=== PATIENT | female | born 1945 | race Caucasian/White ===

== ENCOUNTER 2017-08-31 17:34 | Emergency (ER) | payer OTHER ==
[2017-08-31 17:39] VITALS: BMI 22.5
[2017-08-31 17:42] VITALS: PULSE 73; TEMP 98
--- NOTE | 2017-08-31 17:50 | PDOC ---
Attending Attestation - Resident Resident Name: Jennifer Ohara - ED Attending Attestation I have performed the following: I have examined & evaluated the patient, The case was reviewed & discussed with the resident, I agree w/resident's findings & plan, Exceptions are as noted - HPI HPI: 08/31/17 17:49 72 year old female pmh HTN, HLD p/w sudden onset of left lower jaw pain starting around 2:30 pm. Pt states that the pain started around her left lower jaw worse with clenching. Denies trauma, injury. No recent dental procedure, though did have teeth xrays that were negative about a 1 month ago. Has dental caps. Denies chest pain or shortness of breath. Palpation of teeth worsens pain. No fevers, chills. Pt reports taking oral gel and NSAIDS which improved the pain significantly. - Physicial Exam PE: 08/31/17 18:04 GENERAL: Awake, alert, and fully oriented, in no acute distress HEAD: No signs of trauma EYES: EOMI, sclera anicteric, conjunctiva clear ENT: Auricles normal inspection, hearing grossly normal, nares patent, oropharynx clear without exudates. No TMJ tenderness. No fluctuance or induration or erythema. Palpation of skin overlying left jaw elicits no pain. Patient quite tender to palpation over left lower teeth. No evidence of gingival infection. TMs clear bilaterally. NECK: Normal ROM, supple LUNGS: Breath sounds equal, clear to auscultation bilaterally. No wheezes, and no crackles HEART: Regular rate and rhythm, normal S1 and S2, no murmurs, rubs or gallops EXTREMITIES: Normal range of motion, no edema. No clubbing or cyanosis. No cords, erythema, or tenderness NEUROLOGICAL: Cranial nerves II through XII intact. Normal speech, normal gait SKIN: Warm, Dry, normal turgor, no rashes or lesions noted. - Medical Decision Making 08/31/17 18:05 Vital Signs Temp Pulse Resp BP Pulse Ox 98.0 F 73 18 163/111 100 08/31/17 17:34 08/31/17 17:34 08/31/17 17:34 08/31/17 17:34 08/31/17 17:34 Pt with dental pain. Pt has very reproducible tooth pain (with no evidence of infection) Never had chest pain (very low suspicion for ACS). NSAIDs, supportive care. Pt's son will obtain an appointment with a dentist.
--- NOTE | 2017-08-31 18:05 | PDOC ---
History of Present Illness - General Chief Complaint: Pain, Acute Stated Complaint: LEFT JAW PAIN Time Seen by Provider: 08/31/17 17:42 - History of Present Illness Initial Comments: 08/31/17 18:05 72 year old with a history of HTN and HLD who presents with sudden onset L sided jaw pain radiating from the L eye to the L jawline. Initially rated 11/10 now 6/10 after aleve and oragel. She denies headache, nausea, vomiting, fever, chest pain, changes in vision or hearing. She has no other complaints at bedside. PMHX: as in HPI PSHX: none Meds: clonidine, simvastatin, ASA, telsartan Allergies: peniciilin, sulfa Tob: none Etoh: occasional Rec drugs: none Past History - Past Medical History Allergies/Adverse Reactions: Allergies Allergy/AdvReac Type Severity Reaction Status Date / Time Penicillins Allergy Verified 08/31/17 17:35 Sulfa (Sulfonamide Allergy Verified 08/31/17 17:35 Antibiotics) RUM Allergy Uncoded 08/31/17 17:35 Home Medications: Ambulatory Orders Aspirin [ASA -] 81 mg PO DAILY 08/31/17 Clonidine HCl 0.1 mg PO BID 08/31/17 Simvastatin 0 mg PO HS 08/31/17 Telmisartan/Hydrochlorothiazid [Telmisartan-Hctz 80-25 mg Tab] 1 each PO DAILY 08/31/17 COPD: No DVT: No HTN: Yes Hypercholesterolemia: Yes - Surgical History Abdominal Surgery: Yes (HERNIA) - Suicide/Smoking/Psychosocial Hx Smoking History: Never smoked Hx Alcohol Use: Yes Drug/Substance Use Hx: No Substance Use Type: Alcohol Review of Systems - Review of Systems Able to Perform ROS?: Yes Is the patient limited Croatian proficient: No Constitutional: No: Chills, Fever HEENTM: No: Blurred Vision, Tinnitus Respiratory: No: Cough, Shortness of Breath Cardiac (ROS): No: Chest Pain ABD/GI: No: Constipated, Diarrhea, Nausea, Vomiting Musculoskeletal: No: Muscle Pain, Muscle Weakness Neurological: No: Headache *Physical Exam - Vital Signs Last Vital Signs Temp Pulse Resp BP Pulse Ox 98.0 F 73 18 163/111 100 08/31/17 17:34 08/31/17 17:34 08/31/17 17:34 08/31/17 17:34 08/31/17 17:34 - Physical Exam Comments: 08/31/17 18:11 GENERAL: Awake, alert, and fully oriented, in no acute distress HEAD: No signs of trauma, normocephalic, atraumatic EYES: PERRLA, EOMI, sclera anicteric, conjunctiva clear ENT: Auricles normal inspection, hearing grossly normal, nares patent, oropharynx clear without exudates. Moist mucosa, + tenderness to dental palpation NECK: Normal ROM, supple, no lymphadenopathy or masses LUNGS: No distress, speaks full sentences, clear to auscultation bilaterally HEART: Regular rate and rhythm, normal S1 and S2, + holosystolic murmur, rubs or gallops, peripheral pulses normal and equal bilaterally. ABDOMEN: Soft, nontender, normoactive bowel sounds. No guarding, no rebound. No masses EXTREMITIES : Normal inspection, Normal range of motion, no edema. No clubbing or cyanosis. NEUROLOGICAL: Cranial nerves II through XII grossly intact. Normal speech, normal gait, no focal sensorimotor deficits SKIN: Warm, Dry, normal turgor, no rashes or lesions noted 08/31/17 18:13 Medical Decision Making - Medical Decision Making 08/31/17 18:12 72 year old with a history of HTN and HLD who presents with sudden onset L sided jaw pain radiating from the L eye to the L jawline. Patient's symptoms and physical exam are most consistent with dental pain. Also consider trigeminal neuralgia vs ACS vs CVA, however considering pain improved with oragel and the patient point tenderness to dental palpation this is most consistent with dental pain. The patient is stable for discharge and advised to f/u with dental within 1-2 days and given strict return precautions. *DC/Admit/Observation/Transfer Diagnosis at time of Disposition: Pain, dental - Discharge Dispostion Disposition: HOME Condition at time of disposition: Stable Decision to Admit order: No - Referrals Referrals: Feliberto Solitario [Primary Care Provider] - - Patient Instructions Printed Discharge Instructions: DI for Dental Pain Additional Instructions: Advised to see dentist as soon as possible. Continue to take oragel as needed and over the counter aleve or pain medications. Return to the ED is pain worsens , fever develops or headache, nausea or vomiting. - Post Discharge Activity
[2017-08-31 18:21] VITALS: BP 152/90
== END 2017-08-31 18:10 | disposition home or self-care (01) ==
LOC: FER 17:34
DX: K08.89 Other specified disorders of teeth and supporting structures (principal); I10 Essential (primary) hypertension; E78.5 Hyperlipidemia, unspecified; Z88.0 Allergy status to penicillin; Z88.2 Allergy status to sulfonamides; Z79.82 Long term (current) use of aspirin
CPT/HCPCS: 99281-25

== ENCOUNTER 2019-01-03 12:48 | Emergency (ER) | payer OTHER, BC ==
[2019-01-03 13:08] VITALS: BMI 23.2
--- NOTE | 2019-01-03 14:20 | PDOC ---
Attending Attestation - Resident Resident Name: Frederick Lee - ED Attending Attestation I have performed the following: I have examined & evaluated the patient, The case was reviewed & discussed with the resident, I agree w/resident's findings & plan, Exceptions are as noted - HPI HPI: 01/03/19 14:34 MS. Ramirez is a 73-year-old female presenting to emergency department with swelling beneath her left mandibular area. Patient has a history of hypertension, hyperlipidemia. Approxi-1 week ago she began to have pain in her left ear, went to an urgent care and was told she was fine She returned to the urgent care where rapid strep was performed and patient was told she has strep throat. She has been on azithromycin for the past 3 days. However over this time, she has noticed progressive worsening of swelling beneath her left jaw. Patient noticed she has pain with opening her mouth Patient also notes that the area is tender and warm No fevers or chills although patient is taking Advil every 3 hours for pain No difficulty breathing No cough - Physicial Exam PE: 01/03/19 14:20 GENERAL: The patient is in no acute distress. ENT: Ears normal, nares patent, oropharynx clear without exudates. Moist mucous membranes. No tonsillar enlargement, no exudates NECK: Normal range of motion, supple, no nuchal rigidity (+) LAD LUNGS: Breath sounds equal, clear to auscultation bilaterally. No wheezes, and no crackles. HEART:Regular rate and rhythm, normal S1 and S2 without murmur, rub or gallop. ABDOMEN: Soft, nontender, normoactive bowel sounds. EXTREMITIES: Normal range of motion, no edema. NEUROLOGICAL: Cranial nerves II through XII grossly intact. Normal speech. No focal neurological deficits. SKIN: Warm, Dry, normal turgor, no rashes or lesions noted. - Medical Decision Making 01/03/19 14:37 73-year-old female presenting to the emergency department due to submandibular swelling Patient symptoms began as ear pain, found to have strep throat, currently on azithromycin Differential diagnosis includes: Local abscess, inflamed lymph node, periapical abscess, We will do: Labs Blood cultures CT soft tissue neck We will likely transfer 01/03/19 16:10 Laboratory Tests 01/03/19 01/03/19 01/03/19 14:23 15:00 15:00 WBC 7.8 Hgb 14.6 Hct 43.3 Plt Count 281 INR 1.13 H BUN 15.[address] pending 01/03/19 18:53 Referring Physician: DONALD GIBBS The palate, tongue and floor of the mouth:unremarkable. The posterior nasopharyngeal soft tissues appear normal. No tonsillar or retropharyngeal mass is seen. The thyroid and visualized salivary glands appear normal. Bilateral cervical and left submandibular lymphadenopathy, likely reactive. The imaged airway is patent. The imaged portions of the paranasal sinuses and the mastoid air cells are clear. Moderate to advanced cervical spondylosis at C4-C5 with 4 mm retrolisthesis. The prevertebral soft tissues are normal in caliber. Pulmonary venous congestion noted in the upper lungs. IMPRESSION: 1. The posterior nasopharyngeal soft tissues appear normal. No tonsillar or retropharyngeal abscess/mass is seen. 2. Bilateral cervical and left submandibular lymphadenopathy, likely reactive. Will change antibiotics to clindamycin, will give a dose IV now Will discharge on clindamycin p.o. We will asked patient to follow-up with either ENT, PMD within 1 day If she is unable to do so follow-up in the emergency depart
[2019-01-03] MEDS ORDERED: KETOROLAC TROMETHAMINE 15 MG/ML VIAL IVPUSH ONE ×2 (14:30→19:00)
--- NOTE | 2019-01-03 14:32 | PDOC ---
History of Present Illness - General Chief Complaint: Edema Stated Complaint: JAW PAIN Time Seen by Provider: 01/03/19 13:13 History Source: Patient Exam Limitations: No Limitations - History of Present Illness Initial Comments: 01/03/19 14:27 73 yo female pmh HTN, HLD presents to the ED for pain and swelling to the left lower jaw. Pt states the pain began approx 1 week ago, located around her left ear, went to Urgent care and tested positive for strep throat, treated for the past 3 days with Azithro manuela, the swelling, pain and warmth to the left lower jaw began and worsened despite antibiotics. Pt states it hurts to open her mouth wide, she has warmth and significant pain to the left submandibular region requiring 3 Advils every 3 hours to control pain. Denies pain with swelling, swelling of the tongue, difficulty breathing, dental infections or procedures to the surrounding area, tolerating secretions, no CP, abdominal pain , fevers, N/V Past History - Past Medical History Allergies/Adverse Reactions: Allergies Allergy/AdvReac Type Severity Reaction Status Date / Time Penicillins Allergy Verified 08/31/17 17:35 Sulfa (Sulfonamide Allergy Verified 08/31/17 17:35 Antibiotics) RUM Allergy Uncoded 08/31/17 17:35 Home Medications: Ambulatory Orders Aspirin [ASA -] 81 mg PO DAILY 08/31/17 Clonidine HCl 0.1 mg PO BID 08/31/17 Simvastatin 0 mg PO HS 08/31/17 Telmisartan/Hydrochlorothiazid [Telmisartan-Hctz 80-25 mg Tab] 1 each PO DAILY 08/31/17 Clindamycin [Cleocin -] 300 mg PO TID 10 Days #30 capsule 01/03/19 COPD: No DVT: No HTN: Yes Hypercholesterolemia: Yes - Surgical History Abdominal Surgery: Yes (HERNIA) - Psycho Social/Smoking Cessation Hx Smoking History: Never smoked Hx Alcohol Use: Yes ("occasional") Drug/Substance Use Hx: No Substance Use Type: Alcohol Review of Systems - Review of Systems Constitutional: No: Chills, Fever HEENTM: Yes: Other (submandibular swelling, pain and warmth ). No: Ear Discharge, Throat Pain, Throat Swelling, Dental Problems, Difficulty Swallowing (difficulty opening mouth wide), Mouth Swelling Respiratory: No: Shortness of Breath, Productive cough, Hemoptysis Cardiac (ROS): No: Chest Pain, Edema ABD/GI: No: Constipated, Diarrhea, Nausea, Vomiting : No: Burning, Dysuria, Frequency, Flank Pain Musculoskeletal: No: Back Pain Integumentary: No: Change in Color, Rash Neurological: No: Headache, Numbness, Paresthesia *Physical Exam - Vital Signs Last Vital Signs Temp Pulse Resp BP Pulse Ox 98.1 F 104 H 20 171/118 H 97 01/03/19 13:02 01/03/19 13:02 01/03/19 13:02 01/03/19 13:02 01/03/19 13:02 - Physical Exam General Appearance: Yes: Nourished, Appropriately Dressed. No: Apparent Distress HEENT: positive: EOMI, Normal Voice, TMs Normal, Hearing Grossly Normal, Other ( left submandibular swelling with fluctuance and pain on palpation. No tenderness to gums or tongue swelling however, pt admits to pain on palpation under the tongue Tolerating secretions). negative: Scleral Icterus (R), Scleral Icterus (L), Muffled/Hoarse voice, Pharyngeal Erythema, Tonsillar Exudate, Tonsillar Erythema, Sinus Tenderness, Excessive drooling Neck: positive: Trachea midline, Normal Thyroid, Supple. negative: Tender, Carotid bruit, Decreased range of motion Respiratory/Chest: positive: Lungs Clear, Normal Breath Sounds. negative: Respiratory Distress, Accessory Muscle Use, Crackles, Rales, Rhonchi, Stridor, Wheezing Cardiovascular: positive: Regular Rhythm, S1, S2, Tachycardia. negative: Edema , JVD, Murmur Vascular Pulses: Dorsalis-Pedis (R): 4+, Doralis-Pedis (L): 4+ Gastrointestinal/Abdominal: positive: Flat, Soft. 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 Pt states the pain began approx 1 week ago, located around her left ear, went to Urgent care and tested positive for strep throat, treated for the past 3 days with Azithro manuela, the swelling, pain and warmth to the left lower jaw began and worsened despite antibiotics. Pt states it hurts to open her mouth wide, she has warmth and significant pain to the left submandibular region requiring 3 Advils every 3 hours to control pain. Denies pain with swelling, swelling of the tongue, difficulty breathing, dental infections or procedures to the surrounding area, tolerating secretions, no CP, abdominal pain , fevers, N/V vitals show elevated HR and BP, pt admits to increased pain and anxiety about being in the ED. Will reassess after pain control See PE DDX INLT: RFA, ludwigs, submandibular abscess, submandibular gland obstruction bedside ED US shows collection likely representing an abscess CT soft tissue neck ordered Will do labs including cultures and control pain prior to antibiotics Discharge - Discharge Information Problems reviewed: Yes Clinical Impression/Diagnosis: Lymphadenitis, acute Condition: Stable Disposition: HOME - Additional Discharge Information Prescriptions: Clindamycin [Cleocin -] 300 mg PO TID 10 Days #30 capsule - Follow up/Referral Referrals: Kylee Solitario MD [Primary Care Provider] - Wallace De La Rosa MD [Staff Physician] - Enrique Waters MD [Staff Physician] - - Patient Discharge Instructions Patient Printed Discharge Instructions: DI for Lymphadenopathy, Chronic Lymphadenitis, DI for Strep Throat Additional Instructions: Please see your primary doctor and the ENT specialist referred to you within the next 48 hours. If unable to see your Doctor or ENT doctor within 48 hours, come back to the ER for re evaluation to ensure the swelling does not worsen. Take the antibiotic Clindamycin 3 times per day for the next 10 days and probiotics. Return to the closest ER for new or concerning symptoms including but not limited to: difficulty swallowing, enlarging swelling, difficulty breathing, pain with movement of your neck, fevers, confusion. Thank you - Post Discharge Activity
[2019-01-03 15:29] LABS: BASO % 0.6 % (0-2.0); EOS % 1.1 % (0-4.5); HEMATOCRIT 43.3 % (32.4-45.2); HEMOGLOBIN 14.6 GM/dL (10.7-15.3); LYMPH % 14.9 % (8-40); MCH 30.8 pg (25.7-33.7); MCHC 33.8 g/dl (32.0-36.0); MEAN CELL VOLUME 90.9 fl (80-96); MEAN PLT VOLUME 7.9 fl (7.5-11.1); MONO % 7.4 % (3.8-10.2); PLATELET COUNT 281 K/MM3 (134-434); RBC 4.76 M/mm3 (3.60-5.2); RDW 13.9 % (11.6-15.6); WHITE BLOOD COUNT 7.8 K/mm3 (4.0-10.0)
[2019-01-03] MEDS ORDERED: KETOROLAC TROMETHAMINE 15 MG/ML VIAL ONE ×2 (15:35→20:02)
[2019-01-03 15:42] LABS: INR 1.13 (0.83-1.09); PROTHROMBIN TIME (PATIENT) 13.4 SEC (9.7-13.0)
[2019-01-03 16:07] LABS: ALBUMIN 3.6 g/dl (3.4-5.0); BILIRUBIN,TOTAL 0.6 mg/dL (0.2-1); BLOOD UREA NITROGEN 15.1 mg/dL (7-18); CALCIUM 9.7 mg/dL (8.5-10.1); CREATININE 0.9 mg/dL (0.55-1.3); TOT PROT 7.5 g/dl (6.4-8.2)
[2019-01-03 16:08] LABS: POTASSIUM 4.8 mmol/L (3.5-5.1)
[2019-01-03 18:13] VITALS: BP 123/70; PULSE 90; TEMP 98.2
[2019-01-03] MEDS ORDERED: CLINDAMYCIN 900 MG PREMIX IVPB 900 MG/50 ML BAG IVPB ONE ×2 (18:59→20:01)
== END 2019-01-03 20:49 | disposition home or self-care (01) ==
LOC: JER 12:48
PROC: 3E03329 Introduction of Other Anti-infective into Peripheral Vein, Percutaneous Approach (ICD-10-PCS; principal; 2019-01-03)
PROC: 3E0333Z Introduction of Anti-inflammatory into Peripheral Vein, Percutaneous Approach (ICD-10-PCS; 2019-01-03)
DX: L04.9 Acute lymphadenitis, unspecified (principal); I10 Essential (primary) hypertension; E78.00 Pure hypercholesterolemia, unspecified; E78.5 Hyperlipidemia, unspecified; Z88.0 Allergy status to penicillin; Z88.2 Allergy status to sulfonamides
CPT/HCPCS: 36415; 70491-TC; 80053; 85025; 85610; 87040; 99282-25

== ENCOUNTER 2021-08-16 06:50 | Day surgery (SDC) | payer OTHER, BC ==
[2021-08-10 13:34] VITALS: BMI 24.3
[2021-08-16] MEDS ORDERED: TETRACAINE 0.5% OPHTH SOLN 2 ML BOTTLE ONE (07:14)
[2021-08-16] MEDS ORDERED: BSS (NA/CA/MG/K) BALANCED SALT SOLUTION OPHTH SOLN 15 ML BOTTLE ONE (07:14)
[2021-08-16] MEDS ORDERED: LIDOCAINE HCL/PF 1% SDV 5ML VIAL ONE (07:14)
[2021-08-16] MEDS ORDERED: EPINEPHrine/PF 1 MG/1 ML (1:1,000) AMPULE ONE (07:14)
[2021-08-16] MEDS ORDERED: LIDOCAINE HCL/PF 2% SDV 5ML VIAL ONE (07:14)
[2021-08-16] MEDS ORDERED: NEO/POLYMYX B SULF/DEXAMETH OPHTHALMIC 5ML BOTTLE ONE (07:15)
[2021-08-16] MEDS ORDERED: CARBACHOL 0.01% INTRA-OCULAR 1.5 ML VIAL ONE (07:15)
[2021-08-16] MEDS: PHENYLEPHRINE 2.5% OPHTH SOLN 15 ML BOTTLE ONE ×3 (07:30→07:40)
[2021-08-16] MEDS: CIPROFLOXACIN 0.3% EYE DROPS 5 ML BOTTLE ONE ×3 (07:30→07:40)
[2021-08-16] MEDS: CYCLOPENTOLATE 2% OPHTH SOLN 2 ML BOTTLE ONE ×3 (07:30→07:40)
[2021-08-16] MEDS: TROPICAMIDE 1% OPHTH SOLN 15 ML BOTTLE ONE ×3 (07:30→07:40)
[2021-08-16] MEDS ORDERED: MIDAZOLAM HCL 2 MG/2 ML SINGLE DOSE VIAL ONE (08:30)
[2021-08-16 09:14] VITALS: TEMP 97.8
[2021-08-16 09:32] VITALS: PULSE 74
[2021-08-16 09:38] VITALS: BP 116/79
== END 2021-08-16 09:38 | disposition home or self-care (01) ==
LOC: FASU 06:50
PROVIDERS: ATTEND Ophthalmology
PROC: 08RJ3JZ Replacement of Right Lens with Synthetic Substitute, Percutaneous Approach (ICD-10-PCS; principal; 2021-08-16 08:37)
DX: H26.8 Other specified cataract (principal)
CPT/HCPCS: 66984; V2632

== ENCOUNTER 2021-08-30 10:33 | Day surgery (SDC) | payer OTHER, BC ==
[2021-08-25 17:18] VITALS: BMI 24.3
[2021-08-30] MEDS ORDERED: LIDOCAINE 1% P/F 10 MG/ML VIAL ONE ×2 (10:47→12:46)
[2021-08-30] MEDS ORDERED: CARBACHOL 0.01% INTRA-OCULAR 1.5 ML VIAL ONE ×2 (10:47→10:48)
[2021-08-30] MEDS ORDERED: BSS (NA/CA/MG/K) BALANCED SALT SOLUTION OPHTH SOLN 15 ML BOTTLE ONE ×2 (10:47→10:48)
[2021-08-30] MEDS ORDERED: NEO/POLYMYX B SULF/DEXAMETH OPHTHALMIC 5ML BOTTLE ONE ×2 (10:47→10:48)
[2021-08-30] MEDS ORDERED: EPINEPHrine/PF 1 MG/1 ML (1:1,000) AMPULE ONE (10:48)
[2021-08-30] MEDS: CIPROFLOXACIN 0.3% EYE DROPS 5 ML BOTTLE ONE ×3 (11:15→11:25)
[2021-08-30] MEDS: TROPICAMIDE 1% OPHTH SOLN 15 ML BOTTLE ONE ×3 (11:15→11:25)
[2021-08-30] MEDS: PHENYLEPHRINE 2.5% OPHTH SOLN 15 ML BOTTLE ONE ×3 (11:15→11:25)
[2021-08-30] MEDS: CYCLOPENTOLATE 2% OPHTH SOLN 2 ML BOTTLE ONE ×3 (11:15→11:25)
[2021-08-30] MEDS ORDERED: MIDAZOLAM HCL 2 MG/2 ML SINGLE DOSE VIAL ONE ×2 (13:00→13:01)
[2021-08-30] MEDS ORDERED: ONDANSETRON 4 MG/2 ML VIAL ONE (13:04)
[2021-08-30 13:32] VITALS: TEMP 97.3
[2021-08-30 14:32] VITALS: BP 115/82; PULSE 78
== END 2021-08-30 14:15 | disposition home or self-care (01) ==
LOC: FASU 10:33
PROVIDERS: ATTEND Ophthalmology
PROC: 08RK3JZ Replacement of Left Lens with Synthetic Substitute, Percutaneous Approach (ICD-10-PCS; principal; 2021-08-30 13:04)
DX: H26.8 Other specified cataract (principal)
CPT/HCPCS: 66984; V2632